=== PATIENT | female | born 2000 | race Caucasian/White ===

== ENCOUNTER 2022-05-13 16:26 | Inpatient (IN) | payer OTHER, MEDICAID ==
[~2022-05-13] VITALS: Ht 162.6 cm; Wt 124.3 kg
[2022-05-13] MEDS ORDERED: NALBUPHINE HCL 10 MG/ML AMP IVP PRN (17:30)
[2022-05-13] MEDS ORDERED: NALBUPHINE HCL 10 MG/ML AMP IM PRN (17:30)
[2022-05-13] MEDS ORDERED: OXYTOCIN/0.9 % SODIUM CHLORIDE 1,000 ML IV SCH (17:30)
[2022-05-13] MEDS ORDERED: DINOPROSTONE 10 MG SUPP VG ONE (17:30)
[2022-05-13] MEDS ORDERED: LR 1,000 ML IV ONE (17:30)
[2022-05-13] MEDS ORDERED: TERBUTALINE SULFATE 1 MG/ML VIAL SUBCUT ONE (17:30)
[2022-05-13 18:16] LABS: BASOPHILS % (AUTO) 0.3 % (0.0-2.0); EOSINOPHILS % (AUTO) 0.4 % (0.0-4.0); HEMATOCRIT 31.3 % (36-48); HEMOGLOBIN 10.5 g/dL (12.0-16.0); MEAN CORPUSCULAR HEMOGLOBIN 28 pg (27-31); MEAN CORPUSCULAR HGB CONC 34 % (32-36); MEAN CORPUSCULAR VOLUME 83 fL (79.0-98.0); MONOCYTES # (AUTO) 0.7 K/uL (0.0-1.0); MONOCYTES % (AUTO) 6.6 % (1.7-9.3); NEUTROPHILS # (AUTO) 7.8 K/uL (1.8-7.7); NEUTROPHILS % (AUTO) 73.7 % (40.0-70.0); PLATELET COUNT (AUTO) 223 K/uL (130-430); RED BLOOD CELL COUNT(AUTO) 3.76 MIL/uL (4.2-6.2); RED CELL DISTRIBUTION WIDTH 15.5 % (9.0-15.0); WHITE BLOOD COUNT (AUTO) 10.5 K/uL (4.8-10.8)
[2022-05-13 20:18] VITALS: BP_SYST 130
[2022-05-14] MEDS: LR 1,000 ML IV SCH ×3 (09:50→22:24)
[2022-05-14] MEDS ORDERED: FENT2mCg/mL-ROPIVA0.2%/NS EPID 200 ML EP SCH (16:50)
[2022-05-14] MEDS ORDERED: fentaNYL CITRATE/PF 100 MCG/2 ML AMP ONE (16:53)
[2022-05-14] MEDS ORDERED: ROPIVACAINE HCL/PF 0.2% 200 ML ONE (16:53)
[2022-05-15] MEDS: LR 1,000 ML IV SCH (03:09)
[2022-05-15] MEDS ORDERED: ceFAZolin SODIUM 2 GM in D5W 100 ML IV ONE (09:30)
[2022-05-15] MEDS ORDERED: ROPIVACAINE HCL/PF 0.2% 200 ML ONE (09:44)
[2022-05-15] MEDS ORDERED: ePHEDrine sulfate 50 MG/ML VIAL ONE (10:00)
[2022-05-15] MEDS ORDERED: MORPHINE SULFATE 10MG/10ML PF AMP ONE (10:00)
[2022-05-15] MEDS ORDERED: ceFAZolin SODIUM 1 GM VIAL ONE (10:00)
[2022-05-15] MEDS ORDERED: OXYTOCIN 10 UNIT/ML VIAL ONE (10:00)
[2022-05-15] MEDS ORDERED: fentaNYL CITRATE/PF 100 MCG/2 ML AMP ONE (10:00)
[2022-05-15] MEDS ORDERED: LR 1,000 ML IV.SOLN IV ONE (10:00)
[2022-05-15] MEDS ORDERED: LIDOCAINE/EPI MPF 2%1:200000 10 ML VIAL INJ ONE (10:00)
[2022-05-15] MEDS ORDERED: LANOLIN 7 GM OINT. TP PRN (11:15)
[2022-05-15] MEDS ORDERED: RHO(D) IMMUNE GLOBULIN/MALTOSE 1500 UNITS/1.3 ML (WINHRO) IM PRN (11:15)
[2022-05-15] MEDS ORDERED: ANUSOL 1 EA SUPP.RECT (PREPARATION H) RC PRN (11:15)
[2022-05-15] MEDS ORDERED: NALOXONE HCL 0.4 MG/ML AMP (NARCAN) IVP PRN ×3 (11:15→11:30)
[2022-05-15] MEDS ORDERED: OXYCODONE/ACETAMINOPHEN 5-325 TABLET PO PRN (11:15)
[2022-05-15] MEDS ORDERED: LR 1,000 ML IV SCH (11:15)
[2022-05-15] MEDS ORDERED: OXYCODONE/ACETAMINOPHEN *10*mg/325 mg TABLET PO PRN (11:15)
[2022-05-15] MEDS ORDERED: HYDROcodone/ACETAMIN 5-325 MG TAB (NORCO/ VICODIN) PO PRN (11:15)
[2022-05-15] MEDS ORDERED: TEMAZEPAM 15 MG CAPSULE PO PRN (11:15)
[2022-05-15] MEDS ORDERED: MEASLES,MUMPS&RUBELLA VACC/PF 12500 UNIT/0.5 ML VIAL SUBQ PRN (11:15)
[2022-05-15] MEDS ORDERED: DIPHTH,PERTUSS(ACELL),TET VAC 0.5 ML VIAL (Tdap) I.M. PRN (11:15)
[2022-05-15] MEDS ORDERED: BISACODYL 10 MG/SUPPOSITORY RC PRN (11:15)
[2022-05-15] MEDS ORDERED: ONDANSETRON HCL 4 MG/2 ML VIAL IVP PRN ×2 (11:30)
[2022-05-15] MEDS ORDERED: HYDROmorphone 1 MG/ML INJ. CARTRIDGE IVP PRN ×2 (11:30)
[2022-05-15] MEDS ORDERED: METOCLOPRAMIDE HCL 10 MG/2 ML VIAL IVP PRN (11:30)
[2022-05-15] MEDS ORDERED: KETOROLAC TROMETHAMINE 60 MG/2 ML VIAL IM PRN (11:30)
[2022-05-15 12:30] VITALS: BP_SYST 104
[2022-05-15] MEDS: CEFAZOLIN 1 GM IVPB PREMIX 50 ML IV SCH (18:05)
[2022-05-15] MEDS: OXYTOCIN/0.9 % SODIUM CHLORIDE 1,000 ML IV SCH (21:52)
[2022-05-15] MEDS: SENNOSIDES/DOCUSATE SODIUM 1 TAB TABLET(SENOKOT-S) PO SCH (21:53)
[2022-05-15] MEDS: SIMETHICONE 80 MG TAB.CHEW PO PRN (21:53)
[2022-05-16] MEDS: CEFAZOLIN 1 GM IVPB PREMIX 50 ML IV SCH ×2 (00:02→05:06)
[2022-05-16] MEDS: KETOROLAC TROMETHAMINE 30 MG VIAL IVP SCH ×2 (05:06→12:08)
[2022-05-16] MEDS: SIMETHICONE 80 MG TAB.CHEW PO PRN ×4 (05:07→23:09)
[2022-05-16] MEDS: OXYTOCIN/0.9 % SODIUM CHLORIDE 1,000 ML IV SCH (07:01)
[2022-05-16 07:21] LABS: BASOPHILS % (AUTO) 0.3 % (0.0-2.0); EOSINOPHILS # (AUTO) 0.1 K/uL (0.0-0.4); EOSINOPHILS % (AUTO) 1.3 % (0.0-4.0); HEMOGLOBIN 9.2 g/dL (12.0-16.0); LYMPHOCYTES # (AUTO) 1.6 K/uL (1.0-5.5); LYMPHOCYTES % (AUTO) 16.7 % (20.5-51.5); MEAN CORPUSCULAR HEMOGLOBIN 28 pg (27-31); MEAN CORPUSCULAR HGB CONC 34 % (32-36); MEAN CORPUSCULAR VOLUME 83 fL (79.0-98.0); MONOCYTES # (AUTO) 0.7 K/uL (0.0-1.0); MONOCYTES % (AUTO) 7.7 % (1.7-9.3); PLATELET COUNT (AUTO) 176 K/uL (130-430); RED BLOOD CELL COUNT(AUTO) 3.25 MIL/uL (4.2-6.2); RED CELL DISTRIBUTION WIDTH 15.5 % (9.0-15.0); WHITE BLOOD COUNT (AUTO) 9.5 K/uL (4.8-10.8)
[2022-05-16] MEDS: DOCUSATE SODIUM 100 MG CAPSULE PO SCH ×2 (12:09→23:09)
[2022-05-16] MEDS: IBUPROFEN 600 MG TABLET PO SCH ×2 (17:49→23:32)
[2022-05-16] MEDS: SENNOSIDES/DOCUSATE SODIUM 1 TAB TABLET(SENOKOT-S) PO SCH (23:09)
[2022-05-17] MEDS: SIMETHICONE 80 MG TAB.CHEW PO PRN ×2 (03:10→12:39)
[2022-05-17] MEDS: IBUPROFEN 600 MG TABLET PO SCH ×2 (06:43→12:40)
[2022-05-17] MEDS ORDERED: OXYC-128 PO (13:37)
[2022-05-17 20:06] LABS: FTA-Ab (T PALLIDUM) Non Reactive (Non Reactive)
== END 2022-05-17 16:15 | disposition home or self-care (01) | DRG 787 ==
LOC: SPU 16:26
PROVIDERS: ADMIT Specialist; ATTEND Specialist
PROC: 10D00Z1 Extraction of Products of Conception, Low, Open Approach (ICD-10-PCS; principal; 2022-05-15)
PROC: 3E0P7VZ Introduction of Hormone into Female Reproductive, Via Natural or Artificial Opening (ICD-10-PCS; 2022-05-15)
PROC: 0U7C7ZZ Dilation of Cervix, Via Natural or Artificial Opening (ICD-10-PCS; 2022-05-15)
DX: O48.0 Post-term pregnancy (principal); O41.03X0 Oligohydramnios, third trimester, not applicable or unspecified; O99.214 Obesity complicating childbirth; O62.2 Other uterine inertia; O32.4XX0 Maternal care for high head at term, not applicable or unspecified; Z3A.41 41 weeks gestation of pregnancy; Z20.822 Contact with and (suspected) exposure to COVID-19; E66.01 Morbid (severe) obesity due to excess calories; Z37.0 Single live birth
CPT/HCPCS: 36415; 81002; 85025; 86592; 86780; 86886; 86900; 86901; 94760; J0690; J1885; J2274; J2590; J3010; J7060; J7120